=== PATIENT | male | born 1965 | race Caucasian/White ===

== ENCOUNTER 2023-11-15 11:16 | Emergency (ER) | payer BC ==
--- NOTE | 2023-11-15 11:57 | ED ---
Upper Extremity HPI - General Chief Complaint: Extremity Injury, Upper Stated Complaint: [facility] Right finger Laceration Time Seen by Provider: 11/15/23 11:42 Source: patient, RN notes reviewed Mode of arrival: ambulatory Limitations: no limitations - History of Present Illness Initial Comments: This is a 58 year old male who presents to the emergency department for an injury to his right pinky finger. 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 Pain is severe at this time. Unsure when his last tetanus vaccine was. MD Complaint: Injury to:: right, finger - Related Data Previous Rx's Medication Instructions Recorded Cephalexin [Keflex] 500 mg PO Q6HR 7 Days #28 cap 11/15/23 HYDROcodone/APAP 5-325MG [Bolton 1 tab PO Q6HR PRN 3 Days #12 tab 11/15/23 5-325] Ibuprofen [Motrin] 800 mg PO Q8H PRN #30 tab 11/15/23 Allergies Allergy/AdvReac Type Severity Reaction Status Date / Time No Known Allergies Allergy Verified 11/15/23 11:53 Review of Systems ROS Statement: Those systems with pertinent positive or pertinent negative responses have been documented in the HPI. ROS Other: All systems not noted in ROS Statement are negative. Past Medical History Past Medical History: No Reported History History of Any Multi-Drug Resistant Organisms: None Reported Past Surgical History: Orthopedic Surgery Additional Past Surgical History / Comment(s): disc fusion Past Psychological History: No Psychological Hx Reported Smoking Status: Current every day smoker Past Alcohol Use History: Occasional Past Drug Use History: Marijuana General Exam Limitations: no limitations General appearance: alert, in no apparent distress Head exam: Present: atraumatic, normocephalic, normal inspection Respiratory exam: Present: normal lung sounds bilaterally. Absent: respiratory distress, wheezes, rales, rhonchi, stridor Cardiovascular Exam: Present: regular rate, normal rhythm, normal heart sounds. Absent: systolic murmur, diastolic murmur, rubs, gallop, clicks Extremities exam: Present: other (Jagged removal of the tip of the right pinky finger. Bleeding with visible subcutaneous tissue and bone.) Neurological exam: Present: alert, oriented X3, CN II-XII intact Psychiatric exam: Present: normal affect, normal mood Course Vital Signs 11/15/23 11/15/23 11:36 15:05 Temperature 97.7 F Pulse Rate 65 65 Respiratory 18 16 Rate Blood Pressure 149/81 119/88 O2 Sat by Pulse 99 65 L Oximetry Medical Decision Making - Medical Decision Making This is a 58 year old male who presents to the emergency department for an injury to his right pinky finger. Was pt. sent in by a medical professional or institution? @ -No Did you speak to anyone other than the patient for history? @ -No Did you review nursing and triage notes? @ -Yes, and I agree, it is accurate with regards to the patient's symptoms. Were old charts reviewed? @ -No Differential Diagnosis? @ -Differential Musculoskeletal: Muscular strain, contusion, ligament sprain, fracture, arthritis, septic arthritis, bursitis, cellulitis, muscle spasm, nerve compression, DVT, arterial occlusion, herpes zoster, electrolyte abnormality, tumor.... This is not meant to be in all inclusive list EKG interpreted by me (3pts min.)? @ -Not obtained X-rays interpreted by me (1pt min.)? @ -X-ray of the right pinky finger obtained. My interpretation identifies a fracture to the tip of the finger. CT interpreted by me (1pt min.)? @ -Not obtained U/S interpreted by me (1pt. min.)? @ -Not obtained What testing was considered but not performed? (CT, X-rays, U/S, labs)? Why? @ -None What meds were considered but not given? Why? @ -None Did you discuss the management of the patient with other professionals? @ -No Did you reconcile home meds? @ -No Was smoking cessation discussed for >3mins.? @ -No Was critical care preformed (if so, how long)? @ -No Were there social determinants of health that impacted care today? How? (Homelessness, low income, unemployed, alcoholism, drug addiction, transp ortation, low edu. Level, literacy, decrease access to med. care, group home, rehab)? @ -No Was there de-escalation of care discussed even if they declined? (Discuss DNR or withdrawal of care, Hospice)? @ -No What co-morbidities impacted this encounter? (DM, HTN, Smoking, COPD, CAD, Cancer, CVA, Hep., AIDS, mental health diagnosis, sleep apnea, morbid obesity)? @ -None Was patient admitted / discharged? @ -Discharged. X-ray of the right pinky finger obtained demonstrating a fracture at the tip. The tip of the finger had been cut off with the machine at work and he had an open fracture. The wound was thoroughly cleansed. He was given Ancef in the emergency department for infectious prophylaxis and his tetan us vaccine was updated. There was not any skin left for closure with sutures. Gelfoam was applied and the finger was bandaged. Case management made the patient an appointment with orthopedics for 2 days from now, on 11/17. Rx for Keflex and Ibuprofen provided with dosing instructions reviewed. Patient discharged home in stable condition. Undiagnosed new problem with uncertain prognosis? @ -None Drug Therapy requiring intensive monitoring for toxicity (Heparin, Nitro, Insulin, Cardizem)? @ -None Were any procedures done? @ -None Diagnosis/symptom? @ -Open fracture of distal phalanx of right little finger Acute, or Chronic, or Acute on Chronic? @ -Acute Uncomplicated (without systemic symptoms) or Complicated (systemic symptoms)? @ -Uncomplicated Side effects of treatment? @ -None Exacerbation, Progression, or Severe Exacerbation] @ -Not applicable Poses a threat to life or bodily function? @ -This will limit his use of the right hand. Return precautions reviewed in depth, the patient is instructed to return to the emergency department with any new, worsening, or concerning symptoms. Patient verbalized understanding. This case was discussed in detail with the attending ED physician, Dr. Solis. Presentation, findings, and treatment plan discussed in detail as well. - Radiology Data Radiology results: report reviewed, image reviewed Disposition Clinical Impression: Open fracture of distal phalanx of right little finger Disposition: HOME SELF-CARE Instructions (If sedation given, give patient instructions): Finger Fracture (ED) Additional Instructions: Return to the emergency department with any new, worsening, or concerning symptoms. Take the antibiotic as prescribed for 7 days. Alternate with ibuprofen and Tylenol as needed for pain relief. Take the Bolton sparingly when your pain is the most severe and be aware that it may make you drowsy. Follow up with Dr. Webb, orthopedics, on 11/17. Your appointment is at 10:15 am. Prescriptions: Cephalexin [Keflex] 500 mg PO Q6HR 7 Days #28 cap Ibuprofen [Motrin] 800 mg PO Q8H PRN #30 tab PRN Reason: Pain HYDROcodone/APAP 5-325MG [B[place] 5-325] 1 tab PO Q6HR PRN 3 Days #12 tab PRN Reason: Pain Is patient prescribed a controlled substance at d/c from ED?: Yes When asked, does pt state using other controlled substances?: No If prescribed controlled substance>3 days was MAPS reviewed?: Prescribed <3 Days Referrals: Lisa Webb DO [Doctor of Osteopathic Medicine] - 11/17/23 10:15 am Kirstie Smiley DO [Primary Care Provider] - 1-2 days Time of Disposition: 14:28
[2023-11-15] MEDS: KETOROLAC 15 MG/ML 1 ML VIAL IVP STA (12:00)
[2023-11-15] MEDS: MORPHINE SULFATE 4 MG/ML SYRINGE IVP STA (12:01)
[2023-11-15] MEDS: LIDOCAINE 1% INJ 10MG/ML (20 ML MDV) SQ ONE (12:02)
[2023-11-15] MEDS: DIPH,PERTUS(ACELL)TETVAC-LF 0.5 ML VIAL IM ONE (12:03)
[2023-11-15 12:09] VITALS: PULSE 65; TEMP 97.7
--- NOTE | 2023-11-15 12:57 | XR ---
EXAMINATION TYPE: XR finger RT DATE OF EXAM: 11/15/2023 12:48 PM CLINICAL INDICATION:Male, 58 years old with history of Pinky finger injury; [facility] COMPARISON: None TECHNIQUE: XR finger RT Frontal, lateral and oblique views were obtained. FINDINGS/IMPRESSION: Fracture of the tip of the second digit of the right hand. Soft tissue defect also noted. No radiopaq ue foreign bodies.
[2023-11-15] MEDS: GELATIN SPONGE,ABSORB (SMALL) 1 EACH SPONGE TOPICAL STA (13:46)
[2023-11-15 15:12] VITALS: BP 119/88; RESP 16
== END 2023-11-15 15:06 | disposition home or self-care (01) ==
LOC: EC 11:16
DX: S62.636B Displaced fracture of distal phalanx of right little finger, initial encounter for open fracture (principal); F17.200 Nicotine dependence, unspecified, uncomplicated; F12.90 Cannabis use, unspecified, uncomplicated; Z23 Encounter for immunization; W23.0XXA Caught, crushed, jammed, or pinched between moving objects, initial encounter; Y99.0 Civilian activity done for income or pay
CPT/HCPCS: 73140; 90715; 99284; 96365; 96366; 96375 ×2; 90471; J2270; J0690; J2001; J1885